=== PATIENT | male | born 1955 | race Caucasian/White ===

== ENCOUNTER 2019-05-07 19:05 | Inpatient (IN) ==
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
[2019-05-07 20:08] LABS: Urine Bilirubin Negative (NEGATIVE); Urine Blood 25 /ul (NEGATIVE); Urine Ketone Negative (NEGATIVE); Urine Nitrite Negative (NEGATIVE); Urine Protein Negative (NEGATIVE); Urine Specific Gravity 1.015 SP.GR. (1.005-1.030); Urine Urobilinogen Normal (NORMAL)
[2019-05-07 20:19] LABS: Urine Appearance Clear (CLEAR); Urine Bacteria None Seen; Urine Color Yellow; Urine RBC TRACE /hpf (0-5); Urine WBC None Seen /hpf (0-5)
[2019-05-07 20:33] LABS: Albumin * 1.8 gm/dl (3.4-5.0); Anion Gap 14.7 mmol/L (6.8-13.8); BUN/Creatinine Ratio 34.9 (9.0-21.6); Bilirubin, Total 0.6 mg/dL (0.0-1.1); Ca. Corrected For Albumin 9.5 mg/dL (8.4-10.2); Calcium * 8.1 mg/dL (7.9-10.9); Carbon Dioxide 21.6 mmol/L (24-32.6); Magnesium 2.1 mg/dL (1.2-2.8); Potassium 5.3 mmol/L (3.4-4.6); Troponin I 0.039 ng/mL (0.00-0.10)
[2019-05-07 20:35] LABS: Mean Cell Volume 99.1 fl (78-100); Mean Corpuscular Hemoglobin 29.1 pg (27-31); Mean Corpuscular Hgb Conc 29.3 g/dl (32-36); Mean Platelet Volume 11.7 fl (8-11.3); Neutrophil # 4.2 K/mm3 (1.3-6.0); Neutrophil % 84.1 % (42-75.0); Red Blood Count 2.34 M/mm3 (4.7-6.0); Red Cell Distribution Width 19.3 % (11.5-14.0)
[2019-05-07 20:42] LABS: Hemoglobin 6.8 gm/dL (13.5-18.0)
[2019-05-07 20:43] LABS: Hematocrit 23.2 % (42.0-52.0)
[2019-05-07 20:44] LABS: Platelet Count 86 K/mm3 (150-450)
[2019-05-07] MEDS ORDERED: DIATRIZOATE MEGLUMINE, SODIUM 30 ML BTL PO ONE (21:12)
[2019-05-08] MEDS ORDERED: ACETAMINOPHEN 325 MG TABLET PO ONE (00:20)
[2019-05-08] MEDS ORDERED: diphenhydrAMINE HCL 50 MG/ML VIAL IV ONE (00:20)
[2019-05-08] MEDS ORDERED: FUROSEMIDE 10 MG/ML VIAL IV ONE (00:22)
[2019-05-08] MEDS ORDERED: SENNOSIDES/DOCUSATE SODIUM 1 TAB TABLET PO PRN (09:52)
[2019-05-08 09:58] LABS: Hematocrit 30.9 % (42.0-52.0); Hemoglobin 9.5 gm/dL (13.5-18.0)
[2019-05-08] MEDS ORDERED: FUROSEMIDE 10 MG/ML VIAL IV SCH (10:00)
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
[2019-05-08] MEDS: CITALOPRAM HYDROBROMIDE 20 MG TABLET PO SCH (11:13)
[2019-05-08] MEDS: INSUL NPH HU REC/INS RG HU REC 100 UNITS/ML VIAL SC SCH (11:14)
[2019-05-08] MEDS ORDERED: INSUL NPH HU REC/INS RG HU REC 100 UNITS/ML VIAL SC SCH (17:00)
[2019-05-08] MEDS: FUROSEMIDE 10 MG/ML VIAL IV SCH (17:00)
[2019-05-08] MEDS: TAMSULOSIN HCL 0.4 MG CAP.SR.24H PO SCH (18:00)
[2019-05-08] MEDS ORDERED: ONDANSETRON 4 MG TAB.RAPDIS PO PRN (18:30)
[2019-05-08] MEDS ORDERED: ONDANSETRON 8 MG TAB.RAPDIS PO PRN (18:30)
[2019-05-08] MEDS: AMITRIPTYLINE HCL 50 MG TABLET PO SCH (20:31)
[2019-05-08] MEDS: FAMOTIDINE 20 MG TABLET PO SCH (20:32)
[2019-05-08] MEDS: ROSUVASTATIN CALCIUM 20 MG TABLET PO SCH (20:32)
[2019-05-08] MEDS: MORPHINE SULFATE 4 MG/ML SYRG IV PRN (21:01)
[2019-05-09 06:26] LABS: Hematocrit 27.3 % (42.0-52.0); Hemoglobin 8.4 gm/dL (13.5-18.0); Mean Cell Volume 96.1 fl (78-100); Mean Corpuscular Hemoglobin 29.6 pg (27-31); Mean Corpuscular Hgb Conc 30.8 g/dl (32-36); Mean Platelet Volume 10.6 fl (8-11.3); Neutrophil # 3.3 K/mm3 (1.3-6.0); Neutrophil % 78.6 % (42-75.0); Platelet Count 85 K/mm3 (150-450); Red Blood Count 2.84 M/mm3 (4.7-6.0); Red Cell Distribution Width 18.2 % (11.5-14.0); White Blood Count 4.1 K/mm3 (4.0-10.5)
[2019-05-09 06:35] LABS: Albumin * 1.6 gm/dl (3.4-5.0); Anion Gap 11.8 mmol/L (6.8-13.8); Bilirubin, Total 0.7 mg/dL (0.0-1.1); Ca. Corrected For Albumin 9.3 mg/dL (8.4-10.2); Calcium * 7.7 mg/dL (7.9-10.9); Carbon Dioxide 26.7 mmol/L (24-32.6); Potassium 4.5 mmol/L (3.4-4.6); Total Protein 4.5 gm/dL (6.2-8.2)
[2019-05-09] MEDS: LEVOTHYROXINE SODIUM 150 MCG TABLET PO SCH (07:31)
[2019-05-09] MEDS: INSUL NPH HU REC/INS RG HU REC 100 UNITS/ML VIAL SC SCH (08:07)
[2019-05-09] MEDS: ASPIRIN 81 MG TABLET.DR PO SCH (09:41)
[2019-05-09] MEDS: predniSONE 20 MG TABLET PO SCH (09:42)
[2019-05-09] MEDS: CITALOPRAM HYDROBROMIDE 20 MG TABLET PO SCH (09:42)
[2019-05-09] MEDS: FUROSEMIDE 10 MG/ML VIAL IV SCH (10:09)
[2019-05-09] MEDS: FUROSEMIDE 40 MG TABLET PO SCH ×3 (10:17→17:25)
--- NOTE | 2019-05-09 10:23 | PN ---
Subjective - Date and Time Seen Date: 05/09/19 Time: 09:16 Subjective Narrative: Overall he feels better today but continues to have right lower quadrant pain. He has not had any more bloody bowel movements. He did move his bowels today. He was able to pivot transfer with occupational therapy this morning. Objective - Review of Systems Generalized/Overall Review: Denies: Fever Respiratory: Denies: Shortness of Breath Cardiac: Reports: Edema. Denies: Chest Pain Abdominal: Reports: Abdominal Pain - Right lower abdomen Neurological: Reports: Tremors - Resting tremors of bilateral hands Misc: All systems neg except as marked - Vitals Vitals: Last Vital Signs Temp 36.7 C 05/09/19 09:49 Pulse 90 05/09/19 09:49 Resp 20 05/09/19 09:49 BP 147/73 05/09/19 09:49 Pulse Ox 100 05/09/19 09:49 - Abnormal Lab Findings Abnormal Lab Findings: Abnormal Lab Results 05/09/19 05/09/19 Range/Units 06:14 06:14 RBC 2.84 L (4.7-6.0) M/mm3 Hgb 8.4 L (13.5-18.0) gm/dL Hct 27.3 L (42.0-52.0) % MCHC 30.8 L (32-36) g/dl RDW 18.2 H (11.5-14.0) % Plt Count 85 L (150-450) K/mm3 Immature Gran % (Auto) 1.40 H (0.001-0.429) % Immature Gran # (Auto) 0.06 H (0.000-0.0310) K/mm3 Neutrophils % 78.6 H (42-75.0) % Lymphocytes % 12.1 L (20-51) % Lymphocytes # 0.50 L (1.5-3.5) k/mm3 Chloride 108 H (97-106) mmol/L BUN 71 H (6-23) mg/dL Creatinine 1.92 H (0.4-1.4) mg/dL Est GFR (Non-Af Amer) 38 L (60-130) mL/min BUN/Creatinine Ratio 37.0 H (9.0-21.6) Calcium 7.7 L (7.9-10.9) mg/dL Alkaline Phosphatase 174 H (50-170) U/L Total Protein 4.5 L (6.2-8.2) gm/dL Albumin 1.6 L (3.4-5.0) gm/dl - Exam Constitutional: Present: Alert, Cooperative, Well developed, Well nourished, No distress, Morbidly obese ENT Exam: Present: hearing grossly normal Neck: Present: non-tender, supple. Absent: lymphadenopathy (R), lymphadenopathy (L) Respiratory: Present: lungs clear, no accessory muscle use, No wheezing. Absent: crackles, rhonchi Cardiovascular/Chest: Present: normal peripheral pulses, regular rate, rhythm, no murmur, edema - 3+ pitting bilateral lower extremities up to the low back and mid abdomen Abdomen: Present: Normal bowel sounds, soft, nontender /Rectal: Present: Other - Dodson in place Extremity: Present: lower extremity edema - 3+ pitting bilateral lower extremities up to the low back and mid abdomen Skin Exam: Present: normal color, other - Weeping of left lower extremity Neurologic: Present: alert, normal mood/affect Appearance: Present: appropriate appearance, appropriate insight Eye contact: Present: cooperative Thoughts: Present: normal mood /affect Cauti Physician Documentation - Urinary Catheter Management [place] Date of Insertion: 05/07/19 Time of Insertion: 19:54 Assessment/Plan Plan Narrative: 63-year-old male with a past medical history of coronary artery disease, constipation, depression, diabetes, gout, hepatitis C, hyperkalemia, hyperlipidemia, secondary hyperparathyroidism, hypertension, hypothyroidism, neurogenic bladder, osteoarthritis, sciatica, stage IV CKD presents with complaints of lower abdominal pain, bloody stool, worsening lower extremity edema and weakness for the past 4 days. He presented to the emergency department and was found to have hemoglobin of 6.8, hematocrit of 23.2, lactic acid of 2.3, BUN of 74, baseline is around 35-45, creatinine of 2.12 with baseline around 1.97, GFR of 34, baseline GFR around 37. Abdominal x-ray showed dilated loops of air-filled small bowel in the right abdomen, air and stool throughout the remainder of the colon to the level of the rectum which could rep resent ileus versus an early/partial. Chest x-ray was negative for any acute small bowel obstruction cardiopulmonary process. CT abdomen pelvis showed cirrhosis, ascites, splenomegaly, anasarca, and mild to moderate retained stool. In the ER he was found to have urinary retention and 1600 cc of urine were drained via Dodson. He currently has a Dodson and had an output of 1300 cc overnight. He was admitted for a GI bleed and fluid overload secondary to anasarca, he was given 2 units of blood with 1 dose of Lasix 40 mg IV. According to our records the patient has had about a 23 kg weight gain in the past 1 month. He has lost about 5 kg fluid in the past 24 hours. He has been diuresing well. He is tolerating it well. His renal function has improved with diuresis so I will continue with IV Lasix. I will increase his dose of Lasix from 40 mg IV twice a day to Lasix 40 mg IV 3 times a day to help offload this high fluid burden. He had a episode of hypoglycemia overnight with blood sugar 40. The sugars resolved with snacks. Hypoglycemia is likely secondary to him being on a strict diabetic diet which he likely does not follow at home. I will therefore hold all his insulin today to assess how he does. Plan #1 attempt to aggressively diurese him as much as his kidneys can tolerate. I will start with Lasix 40 mg IV twice daily. Repeat CBC and CMP in the morning. #2 continue with Dodson, strict I's and O's and daily weights. #3 Continue bowel regimen with senna and Colace as needed #4 resume home medications for comorbidities #5 he is status post 2 units of blood, CBC has dropped slightly but is stable #6 patient has been transitioned to inpatient status. He will likely need rehab on discharge per physical therapy recommendations. #7 I will hold anticoagulation due to the recent GI bleed #8 his blood sugar has been dropping so I will stop insulin for now. If his sugars start rising I will restart insulin at a much lower dose. - Problems/Diagnosis (1) Edema due to hypoalbuminemia Problem: Acute (2) Decompensation of cirrhosis of liver Problem: Acute (3) GI bleed Problem: Resolved Qualifiers: GI bleed type/associated pathology: melena Qualified Code(s): K92.1 - Melena (4) Anemia Problem: Acute Qualifiers: Anemia type: other cause Other causes of anemia: acute posthemorrhagic Qualified Code(s): D62 - Acute posthemorrhagic anemia (5) Fluid overload Problem: Acute Qualifiers: Hypervolemia type: other Qualified Code(s): E87.79 - Other fluid overload (6) Anasarca Problem: Acute (7) Urinary retention Problem: Acute (8) Chronic renal failure, stage 3 (moderate) Problem: Chronic (9) Insulin dependent type 2 diabetes mellitus Problem: Chronic (10) Cirrhosis of liver with ascites Problem: Acute Qualifiers: Hepatic cirrhosis type: unspecified hepatic cirrhosis Qualified Code(s): K74.60 - Unspecified cirrhosis of liver; R18.8 - Other ascites (11) Benign essential hypertension Problem: Chronic (12) Acquired hypothyroidism Problem: Chronic (13) Morbid obesity with BMI of 40.0-44.9, adult Problem: Acute
[2019-05-09] MEDS: TAMSULOSIN HCL 0.4 MG CAP.SR.24H PO SCH (17:25)
[2019-05-09] MEDS ORDERED: INSUL NPH HU REC/INS RG HU REC 100 UNITS/ML VIAL SC ONE (17:43)
[2019-05-09] MEDS: ROSUVASTATIN CALCIUM 20 MG TABLET PO SCH (21:05)
[2019-05-09] MEDS: AMITRIPTYLINE HCL 50 MG TABLET PO SCH (21:05)
[2019-05-09] MEDS: FAMOTIDINE 20 MG TABLET PO SCH (21:05)
[2019-05-09] MEDS ORDERED: INSULIN LISPRO 100 UNITS/ML VIAL SC ONE (21:18)
[2019-05-10 06:36] LABS: Hematocrit 28.3 % (42.0-52.0); Hemoglobin 8.8 gm/dL (13.5-18.0); Mean Cell Volume 95.6 fl (78-100); Mean Corpuscular Hemoglobin 29.7 pg (27-31); Mean Corpuscular Hgb Conc 31.1 g/dl (32-36); Mean Platelet Volume 11.6 fl (8-11.3); Neutrophil # 3.8 K/mm3 (1.3-6.0); Neutrophil % 82.3 % (42-75.0); Platelet Count 80 K/mm3 (150-450); Red Blood Count 2.96 M/mm3 (4.7-6.0); Red Cell Distribution Width 17.4 % (11.5-14.0); White Blood Count 4.6 K/mm3 (4.0-10.5)
[2019-05-10 06:43] LABS: Albumin * 1.7 gm/dl (3.4-5.0); Anion Gap 9.8 mmol/L (6.8-13.8); Bilirubin, Total 0.6 mg/dL (0.0-1.1); Ca. Corrected For Albumin 9.6 mg/dL (8.4-10.2); Calcium * 8.1 mg/dL (7.9-10.9); Potassium 4.8 mmol/L (3.4-4.6); Total Protein 4.8 gm/dL (6.2-8.2)
[2019-05-10 06:52] LABS: BUN/Creatinine Ratio 35.5 (9.0-21.6)
[2019-05-10] MEDS: LEVOTHYROXINE SODIUM 150 MCG TABLET PO SCH (07:20)
[2019-05-10] MEDS: predniSONE 20 MG TABLET PO SCH (09:25)
[2019-05-10] MEDS: ASPIRIN 81 MG TABLET.DR PO SCH (09:25)
[2019-05-10] MEDS: FUROSEMIDE 40 MG TABLET PO SCH ×3 (09:25→17:04)
[2019-05-10] MEDS: CITALOPRAM HYDROBROMIDE 20 MG TABLET PO SCH (09:25)
[2019-05-10] MEDS ORDERED: INSUL NPH HU REC/INS RG HU REC 100 UNITS/ML VIAL SC SCH (11:45)
--- NOTE | 2019-05-10 11:49 | PN ---
Subjective - Date and Time Seen Date: 05/10/19 Time: 11:49 Subjective Narrative: Patient resting comfortably in his chair, currently eating. Doing well with therapy. Vital signs are stable is afebrile. Still has some right lower quadrant pain but is starting to feel better. No recent bloody stools. Patient done roughly 12 pounds from admission with diuresis. Kidney function bumped just a little bit low probably stable and doing well. Hemoglobin is stable. Objective - Review of Systems Generalized/Overall Review: Reports: Weakness, Fatigue. Denies: Chills, Fever EENTM: Reports: No Symptoms Reported Cardiac: Reports: Edema. Denies: Chest Pain Abdominal: Reports: Abdominal Pain. Denies: Nausea, Vomiting, Melena Genitourinary Symptoms: Reports: No Symptoms Reported Neurological: Reports: No Symptoms Reported Endocrine: Reports: No Symptoms Reported - Vitals Vitals: Last Vital Signs Temp 36.5 C 05/10/19 11:00 Pulse 89 05/10/19 11:00 Resp 18 05/10/19 11:00 BP 179/89 H 05/10/19 11:00 Pulse Ox 97 05/10/19 11:00 - Abnormal Lab Findings Abnormal Lab Findings: Abnormal Lab Results 05/10/19 05/10/19 Range/Units 06:11 06:11 RBC 2.96 L (4.7-6.0) M/mm3 Hgb 8.8 L (13.5-18.0) gm/dL Hct 28.3 L (42.0-52.0) % MCHC 31.1 L (32-36) g/dl RDW 17.4 H (11.5-14.0) % Plt Count 80 L (150-450) K/mm3 MPV 11.6 H (8-11.3) fl Immature Gran % (Auto) 1.10 H (0.001-0.429) % Immature Gran # (Auto) 0.05 H (0.000-0.0310) K/mm3 Neutrophils % 82.3 H (42-75.0) % Lymphocytes % 9.2 L (20-51) % Lymphocytes # 0.42 L (1.5-3.5) k/mm3 Potassium 4.8 H (3.4-4.6) mmol/L Chloride 108 H (97-106) mmol/L BUN 71 H (6-23) mg/dL Creatinine 2.00 H (0.4-1.4) mg/dL Est GFR (Non-Af Amer) 36 L (60-130) mL/min BUN/Creatinine Ratio 35.5 H (9.0-21.6) Alkaline Phosphatase 179 H (50-170) U/L Total Protein 4.8 L (6.2-8.2) gm/dL Albumin 1.7 L (3.4-5.0) gm/dl - Exam Constitutional: Present: Alert, Oriented x3 Respiratory: Present: lungs clear, decreased breath sounds Cardiovascular/Chest: Present: regular rate, rhythm, no murmur, edema Extremity: Present: swelling Appearance: Present: disheveled, impaired insight Eye contact: Present: cooperative, normal speech Cauti Physician Documentation - Urinary Catheter Management Coude Date of Insertion: 05/07/19 Time of Insertion: 19:54 Assessment/Plan Plan Narrative: 63 year old male here due to abdominal pain, melena, chf exacerbation, and poorly controlled diabetes Patient no longer having bloody stools, hemoglobin stable at 8.8 today. Will continue to monitor. Repeat cbc in the am. Minimal abdominal pain now. CHF-diuresed 12 lbs since admission. Monitor CKD, creatinine bumped slightly overnight. Will give only 40 mg IV lasix today, repeat CMP in the am Diabetes-patient had all insulin stopped the day before due to hypoglycemic episode. Restarted at lower dose, sugars have been stable. Continue 40 unit of 70/30 BID VSS, he is afebrile. Hydralazine prn for systoliuc pressures > 170 added today. He is more comfortable today then he has been. Continue consistent carb diet. Monitor BS ACHS. Nurse will call with any questions or concerns - Problems/Diagnosis (1) CHF (congestive heart failure) Problem: Acute Qualifiers: Heart failure type: unspecified Heart failure chronicity: acute on chronic Qualified Code(s): I50.9 - Heart failure, unspecified (2) Decompensation of cirrhosis of liver Problem: Acute (3) Fluid overload Problem: Acute Qualifiers: Hypervolemia type: other Qualified Code(s): E87.79 - Other fluid overload (4) Anemia Problem: Acute Qualifiers: Anemia type: other cause Other causes of anemia: acute posthemorrhagic Qualified Code(s): D62 - Acute posthemorrhagic anemia (5) Anasarca Problem: Resolved (6) Morbid obesity with BMI of 40.0-44.9, adult Problem: Acute (7) Insulin dependent type 2 diabetes mellitus Problem: Chronic (8) Benign essential hypertension Problem: Chronic
[2019-05-10] MEDS ORDERED: HUM INSULIN NPH/REG INSULIN HM 100 UNIT/ML VIAL SC SCH (11:50)
[2019-05-10] MEDS: INSUL NPH HU REC/INS RG HU REC 100 UNITS/ML VIAL SC SCH ×2 (11:52→21:01)
[2019-05-10] MEDS: TAMSULOSIN HCL 0.4 MG CAP.SR.24H PO SCH (17:04)
[2019-05-10] MEDS: ROSUVASTATIN CALCIUM 20 MG TABLET PO SCH (20:58)
[2019-05-10] MEDS: FAMOTIDINE 20 MG TABLET PO SCH (20:58)
[2019-05-10] MEDS: AMITRIPTYLINE HCL 50 MG TABLET PO SCH (20:58)
[2019-05-10] MEDS: MORPHINE SULFATE 4 MG/ML SYRG IV PRN (21:43)
[2019-05-10] MEDS ORDERED: hydrALAZINE HCL 20 MG/ML VIAL IV PRN (22:45)
[2019-05-11] MEDS: LEVOTHYROXINE SODIUM 150 MCG TABLET PO SCH (07:27)
[2019-05-11] MEDS: predniSONE 20 MG TABLET PO SCH (08:25)
[2019-05-11] MEDS: FUROSEMIDE 40 MG TABLET PO SCH ×3 (08:25→17:14)
[2019-05-11] MEDS: CITALOPRAM HYDROBROMIDE 20 MG TABLET PO SCH (08:26)
[2019-05-11] MEDS: ASPIRIN 81 MG TABLET.DR PO SCH (08:26)
[2019-05-11] MEDS: INSUL NPH HU REC/INS RG HU REC 100 UNITS/ML VIAL SC SCH ×2 (08:28→22:17)
[2019-05-11 12:58] LABS: Anion Gap 13.2 mmol/L (6.8-13.8); Calcium * 8.6 mg/dL (7.9-10.9); Carbon Dioxide 25.4 mmol/L (24-32.6); Estimated Creat Clear 39.2; Potassium 4.6 mmol/L (3.4-4.6)
[2019-05-11] MEDS: TAMSULOSIN HCL 0.4 MG CAP.SR.24H PO SCH (17:14)
--- NOTE | 2019-05-11 19:48 | PN ---
Subjective - Date and Time Seen Date: 05/11/19 Time: 12:32 Subjective Narrative: Patient sitting comfortably in his chair. Still has significant edema but no other concerns at this time. No longer having abdominal pain. No bloody stools. Vital signs been stable afebrile. Kidney function is slightly worse today than it was yesterday. Patient still working with PT. Objective - Review of Systems Generalized/Overall Review: Reports: Malaise, Fatigue EENTM: Reports: No Symptoms Reported Respiratory: Reports: Shortness of Breath. Denies: Cough Cardiac: Reports: Edema. Denies: Chest Pain Abdominal: Denies: Abdominal Pain, Melena Genitourinary Symptoms: Denies: Burning, Urgency, Frequency - Vitals Vitals: Last Vital Signs Temp 37.0 C 05/11/19 17:36 Pulse 93 05/11/19 17:36 Resp 22 H 05/11/19 17:36 BP 159/78 H 05/11/19 17:36 Pulse Ox 100 05/11/19 17:36 - Abnormal Lab Findings Abnormal Lab Findings: Abnormal Lab Results 05/11/19 Range/Units 12:31 BUN 71 H (6-23) mg/dL Creatinine 2.09 H (0.4-1.4) mg/dL Est GFR (Non-Af Amer) 34 L (60-130) mL/min BUN/Creatinine Ratio 34.0 H (9.0-21.6) Random Glucose 176 H D (70-110) mg/dL - Exam Constitutional: Present: Alert, Oriented x3, Morbidly obese, Looks Older than stated age Respiratory: Present: lungs clear, normal breath sounds Cardiovascular/Chest: Present: regular rate, rhythm, edema - 3+ dimension Abdomen: Present: soft, nontender Skin Exam: Present: cool/dry Appearance: Present: disheveled, impaired insight Eye contact: Present: cooperative, good eye contact Cauti Physician Documentation - Urinary Catheter Management Coude Date of Insertion: 05/07/19 Time of Insertion: 19:54 Assessment/Plan Plan Narrative: 63 year old male here due to abdominal pain, melena, chf exacerbation, and poorly controlled diabetes. History of cirrhosis and hypoalbuminemia. Patient no longer having bloody stools, hemoglobin stable at 8.8 today. Will continue to monitor. No abdominal pain today CHF-diuresed 18 lbs since admission. Monitor CKD, creatinine bumped slightly overnight. Will give only 40 mg IV Lasix daily, repeat BMP in the am Diabetes-blood sugars much better controlled continue 40 unit of 70/30 BID VSS, he is afebrile. Hydralazine prn for systoliuc pressures > 170 added today. Overall continues to improve but still very weak continue consistent carb diet. Monitor BS ACHS. Nurse will call with any questions or concerns. Due to patient's weakness concern for or patient will be discharged but recommended SNF - Problems/Diagnosis (1) CHF (congestive heart failure) Problem: Acute Qualifiers: Heart failure type: unspecified Heart failure chronicity: acute on chronic Qualified Code(s): I50.9 - Heart failure, unspecified (2) Decompensation of cirrhosis of liver Problem: Acute (3) Fluid overload Problem: Acute Qualifiers: Hypervolemia type: other Qualified Code(s): E87.79 - Other fluid overload (4) Anemia Problem: Acute Qualifiers: Anemia type: other cause Other causes of anemia: acute posthemorrhagic Qualified Code(s): D62 - Acute posthemorrhagic anemia (5) Anasarca Problem: Resolved (6) Morbid obesity with BMI of 40.0-44.9, adult Problem: Acute (7) Insulin dependent type 2 diabetes mellitus Problem: Chronic (8) Benign essential hypertension Problem: Chronic
[2019-05-11] MEDS ORDERED: FUROSEMIDE 40 MG TABLET PO SCH (21:00)
[2019-05-11] MEDS: AMITRIPTYLINE HCL 50 MG TABLET PO SCH (22:13)
[2019-05-11] MEDS: ROSUVASTATIN CALCIUM 20 MG TABLET PO SCH (22:14)
[2019-05-11] MEDS: FAMOTIDINE 20 MG TABLET PO SCH (22:14)
[2019-05-12 06:50] LABS: Hematocrit 26.7 % (42.0-52.0); Hemoglobin 8.3 gm/dL (13.5-18.0); Mean Cell Volume 94.7 fl (78-100); Mean Corpuscular Hemoglobin 29.4 pg (27-31); Mean Corpuscular Hgb Conc 31.1 g/dl (32-36); Mean Platelet Volume 11.2 fl (8-11.3); Neutrophil # 2.9 K/mm3 (1.3-6.0); Neutrophil % 82.6 % (42-75.0); Platelet Count 87 K/mm3 (150-450); Red Blood Count 2.82 M/mm3 (4.7-6.0); Red Cell Distribution Width 17.2 % (11.5-14.0); White Blood Count 3.5 K/mm3 (4.0-10.5)
[2019-05-12 07:02] LABS: Anion Gap 10.7 mmol/L (6.8-13.8); Calcium * 8.5 mg/dL (7.9-10.9); Carbon Dioxide 28.4 mmol/L (24-32.6); Estimated Creat Clear 39.8; Potassium 4.1 mmol/L (3.4-4.6)
[2019-05-12] MEDS ORDERED: MORPHINE SULFATE 2 MG/ML DISP.SYRIN IV PRN (07:15)
[2019-05-12] MEDS: LEVOTHYROXINE SODIUM 150 MCG TABLET PO SCH (07:50)
[2019-05-12] MEDS ORDERED: FUROSEMIDE 40 MG TABLET PO ONE (09:00)
[2019-05-12] MEDS: ASPIRIN 81 MG TABLET.DR PO SCH (09:42)
[2019-05-12] MEDS: predniSONE 20 MG TABLET PO SCH (09:42)
[2019-05-12] MEDS: CITALOPRAM HYDROBROMIDE 20 MG TABLET PO SCH (09:42)
[2019-05-12] MEDS: INSUL NPH HU REC/INS RG HU REC 100 UNITS/ML VIAL SC SCH (09:42)
--- NOTE | 2019-05-12 11:39 | DS ---
(1) GI bleed Diagnosis(s): melena plus bright red blood. Problem: Resolved Qualifiers: GI bleed type/associated pathology: melena (2) Decompensation of cirrhosis of liver Diagnosis(s): improved Problem: Acute (3) Steroid-induced myopathy Problem: Acute (4) Chronic renal failure, stage 3 (moderate) Problem: Chronic (5) Insulin dependent type 2 diabetes mellitus Problem: Chronic Date of Discharge:: 05/12/19 Hospital Course: 63-year-old male with a past medical history of coronary artery disease, constipation, depression, diabetes, gout, hepatitis C, hyperkalemia, hyperlipidemia, secondary hyperparathyroidism, hypertension, hypothyroidism, neurogenic bladder, osteoarthritis, sciatica, cirrhosis with ascites, splenomegaly and anasarca, 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 His weakness became profound following institution of steroids at the [facility]. Previously he was able to use a walker from wheelchair to bathroom, but he deteriorated until he could no longer get out or a bed or chair. He reporte having 3-4 bloody bowel movements that were red/dark blood mixed with stool and blood. He presented to the emergency department and was found to have hemoglobin of 6.8, hematocrit of 23.2, lactic acid of 2.3, BUN of 74, baseline is around 35-45, creatinine of 2.12 with baseline around 1.97, GFR of 34, baseline GFR around 37. Abdominal x-ray showed dilated loops of air-filled small bowel in the right abdomen, air and stool throughout the remainder of the colon to the level of the rectum which could represent ileus versus an early/partial. Chest x-ray was negative for any acute small bowel obstruction cardiopulmonary process. CT abdomen pelvis showed cirrhosis, ascites, splenomegaly, anasarca, and mild to moderate retained stool. In the ER he was found to have urinary retention and 1600 cc of urine was drained via Dodson. He currently has a Dodson and had an output of 1300 cc overnight. He was admitted for a GI bleed and fluid overload including ascites secondary to cirrhosis. He was given 2 units of blood with 1 dose of Lasix 40 mg which improved his condition significantly. Still has significant edema and profound weakness, but no other concerns at this time. No longer having abdominal pain. No bloody sto ols. Vital signs been stable. Afebrile. Kidney function and hgb are stable and there is no observable rectal bleeding. Patient still working with PT, but remains very weak and still requires daily physical therapy. Procedures Performed: none Health Concerns: watch chronic anemia and kidney function. watch for electrolyte imbalance and dehydration. watch for additional rectal bleeding. use PT to restore function back to baseline. Results and Findings: Pending Mircobiology Results 05/07/19 20:32 Blood Blood Culture - Preliminary NO GROWTH AFTER 48 HOURS 05/07/19 20:02 Blood Blood Culture - Preliminary NO GROWTH AFTER 48 HOURS Lab Pending Results 05/07/19 20:02: Sodium 140, Plasma Sodium 141, Potassium 5.3 H, Chloride 109 H, Carbon Dioxide 21.6 L, Anion Gap 14.7 H, BUN 74 H, Creatinine 2.12 H, Est GFR (Non-Af Amer) 34 L, BUN/Creatinine Ratio 34.9 H, Random Glucose 166 H, Calcium 8.1, Calcium Adj for Albumin 9.5, Magnesium 2.1, Total Bilirubin 0.6, AST 39, ALT 55, Alkaline Phosphatase 187 H, Creatine Kinase 48, Troponin I 0.039, B- Natriuretic Peptide 736 H, Total Protein 5.0 L, Albumin 1.8 L, Lipase 308 05/07/19 20:02: Lactic Acid, Venous 2.3 H* 05/07/19 20:02: Urine Color Yellow, Urine Appearance Clear, Urine pH 5.0, Ur Specific [place] 1.015, Urine Protein Negative, Urine Glucose (UA) Negative, Urine Ketones Negative, Urine Blood 25 H, Urine Nitrate Negative, Urine Bilirubin Negative, Urine Urobilinogen Normal, Ur Leukocyte Esterase Negative, Urine RBC Trace, Urine WBC None seen, Ur Epithelial Cells None seen, Urine Bacteria None seen, Urine Culture Comments No culture indicated 05/07/19 20:30: Blood Type O Positive, Antibody Screen Negative, Crossmatch See Detail 05/07/19 20:32: WBC 5.0, RBC 2.34 L, Hgb 6.8 L* D, Hct 23.2 L* D, MCV 99.1, MCH 29.1, MCHC 29.3 L, RDW 19.3 H, Plt Count 86 L, MPV 11.7 H, Immature Gran % (Auto) 1.20 H, Immature Gran # (Auto) 0.06 H, Neutrophils % 84.1 H, Lymphocytes % 8.7 L, Monocytes % 5.4, Eosinophils % 0.4, Basophils % 0.2, Nucleated RBC % 0.0, Neutrophils # 4.2, Lymphocytes # 0.43 L, Monocytes # 0.3, Eosinophils # 0.0, Absolute Basophils 0.0 05/07/19 23:20: Lactic Acid, Venous 1.2 05/08/19 09:52: Hgb 9.5 L, Hct 30.9 L 05/09/19 06:14: WBC 4.1, RBC 2.84 L, Hgb 8.4 L, Hct 27.3 L, MCV 96.1, MCH 29.6, MCHC 30.8 L, RDW 18.2 H, Plt Count 85 L, MPV 10.6, Immature Gran % (Auto) 1.40 H, Immature Gran # (Auto) 0.06 H, Neutrophils % 78.6 H, Lymphocytes % 12.1 L, Monocytes % 7.2, Eosinophils % 0.5, Basophils % 0.2, Nucleated RBC % 0.0, Neutrophils # 3.3, Lymphocytes # 0.50 L, Monocytes # 0.3, Eosinophils # 0.0, Absolute Basophils 0.0 05/09/19 06:14: Sodium 142, Plasma Sodium 142, Potassium 4.5, Chloride 108 H, Carbon Dioxide 26.7, Anion Gap 11.8, BUN 71 H, Creatinine 1.92 H, Est GFR (Non- Af Amer) 38 L, BUN/Creatinine Ratio 37.0 H, Random Glucose 101 D, Calcium 7.7 L, Calcium Adj for Albumin 9.3, Total Bilirubin 0.7, AST 30, ALT 48, Alkaline Phosphatase 174 H, Total Protein 4.5 L, Albumin 1.6 L 05/10/19 06:11: WBC 4.6, RBC 2.96 L, Hgb 8.8 L, Hct 28.3 L, MCV 95.6, MCH 29.7, MCHC 31.1 L, RDW 17.4 H, Plt Count 80 L, MPV 11.6 H, Immature Gran % (Auto) 1.10 H, Immature Gran # (Auto) 0.05 H, Neutrophils % 82.3 H, Lymphocytes % 9.2 L, Monocytes % 7.4, Eosinophils % 0.0, Basophils % 0.0, Nucleated RBC % 0.0, Neutrophils # 3.8, Lymphocytes # 0.42 L, Monocytes # 0.3, Eosinophils # 0.0, Absolute Basophils 0.0 05/10/19 06:11: Sodium 141, Plasma Sodium 141, Potassium 4.8 H, Chloride 108 H, Carbon Dioxide 28.0, Anion Gap 9.8, BUN 71 H, Creatinine 2.00 H, Est GFR (Non-Af Amer) 36 L, BUN/Creatinine Ratio 35.5 H, Random Glucose 102, Calcium 8.1, Calcium Adj for Albumin 9.6, Total Bilirubin 0.6, AST 23, ALT 47, Alkaline Phosphatase 179 H, Total Protein 4.8 L, Albumin 1.7 L 05/11/19 12:31: Sodium 140, Plasma Sodium 141, Potassium 4.6, Chloride 106, Carbon Dioxide 25.4, Anion Gap 13.2, BUN 71 H, Creatinine 2.09 H, Est GFR (Non- Af Amer) 34 L, BUN/Creatinine Ratio 34.0 H, Random Glucose 176 H D, Calcium 8.6 05/12/19 05:40: WBC 3.5 L D, RBC 2.82 L, Hgb 8.3 L, Hct 26.7 L, MCV 94.7, MCH 29.4, MCHC 31.1 L, RDW 17.2 H, Plt Count 87 L, MPV 11.2, Immature Gran % (Auto) 1.20 H, Immature Gran # (Auto) 0.04 H, Neutrophils % 82.6 H, Lymphocytes % 8.4 L, Monocytes % 7.8, Eosinophils % 0.0, Basophils % 0.0, Nucleated RBC % 0.0, Neutrophils # 2.9, Lymphocytes # 0.29 L, Monocytes # 0.3, Eosinophils # 0.0, Absolute Basophils 0.0 05/12/19 05:40: Sodium 144 H, Plasma Sodium 144 H, Potassium 4.1, Chloride 109 H, Carbon Dioxide 28.4, Anion Gap 10.7, BUN 72 H, Creatinine 2.06 H, Est GFR (Non-Af Amer) 35 L, BUN/Creatinine Ratio 35.0 H, Random Glucose 124 H, Calcium 8.5 Discharge Location: [facility] Disposition: SNF Condition: Fair Level of Care: SNF Discharge Activity: Other - wheelchair, bed, chair, up with walker and assistance as tolerated (outcome goal). Discharge Diet: Consistent carbs, Low salt - 2 gm sodium diet, Renal Failure [facility]ci Therapy: Physical Therapy, Occupation Therapy Referrals: Donnie Sheikh MD [Primary Care Provider] - Additional Patient Instructions (free text): To [facility], for PT and OT to evaluate and treat. Daily weights. CBC and BMP 1 week. Fingerstick blood sugars achs Please call the [facility] doctor who prescribed prednisone and find out if they want him to continue the same prednisone dose, and if so, for how long. Complete Home Medications List: Complete Home Medication List: glucagon (human recombinant) 1 mg injection kit 1 mg SUB-Q PRN PRN 08/07/17 cholecalciferol (vitamin D3) 4,000 unit capsule 4,000 unit PO DAILY #30 cap 09/13/17 citalopram 20 mg tablet 20 mg PO DAILY #30 tab 07/08/18 tamsulosin 0.4 mg capsule 0.4 mg PO DAILY #30 cap 07/08/18 cyanocobalamin (vitamin B-12) 1,000 mcg capsule 1,000 mcg PO DAILY 07/09/18 levothyroxine 150 mcg tablet 150 mcg PO DAILY #30 tab 07/22/18 allopurinol 300 mg tablet 300 mg PO DAILY #90 tab 11/19/18 naloxone 4 mg/actuation nasal spray 4 mg NICOLASA Q2M PRN #2 ea 12/27/18 famotidine 20 mg tablet 20 mg PO HS #90 tab 12/31/18 econazole 1 % topical cream 1 applic TP BID 03/17/19 furosemide 20 mg tablet 40 mg PO DAILY 03/17/19 insulin human U-100 NPH-regulr 70-30 mix 100 unit/mL subcutaneous susp See Rx Instructions SUBCUT BID #40 ml 03/17/19 polyethylene glycol 3350 17 gram/dose oral powder 17 g PO DAILY 03/17/19 Amitriptyline HCl 100 mg PO HS 05/07/19 Atorvastatin Calcium 40 mg PO HS 05/07/19 predniSONE [Prednisone] 60 mg PO DAILY 05/07/19 Insul NPH Hu Rec/Ins Rg Hu Rec [Novolin 70/30] 40 units SC BID vial 04/06/20 Sennosides/Docusate Sodium [Senokot-S] 1 tab PO BID PRN tab 05/12/19 Spironolactone 100 mg PO QAM #30 tablet 05/12/19
[2019-05-12 16:55] VITALS: BP 163/80
== END 2019-05-12 16:28 | disposition home health service (06) | DRG 378 ==
LOC: ER 19:05 → MS 19:05
PROVIDERS: ADMIT Internal Medicine; ATTEND Allergy & Immunology
DX: E87.79 Other fluid overload; E66.01 Morbid (severe) obesity due to excess calories; D62 Acute posthemorrhagic anemia; R33.9 Retention of urine, unspecified; Z79.4 Long term (current) use of insulin; N18.3 Chronic kidney disease, stage 3 (moderate); E11.22 Type 2 diabetes mellitus with diabetic chronic kidney disease; K74.60 Unspecified cirrhosis of liver; G72.0 Drug-induced myopathy; R18.8 Other ascites; E88.09 Other disorders of plasma-protein metabolism, not elsewhere classified; I50.9 Heart failure, unspecified; I13.0 Hypertensive heart and chronic kidney disease with heart failure and stage 1 through stage 4 chronic kidney disease, or unspecified chronic kidney disease; T38.0X5A Adverse effect of glucocorticoids and synthetic analogues, initial encounter; Z68.41 Body mass index [BMI] 40.0-44.9, adult; K92.2 Gastrointestinal hemorrhage, unspecified
CPT/HCPCS: 36415; 36430; 71010; 71045; 74000; 74018; 74176; 80048; 80053; 81001; 82550; 83519; 83605; 83690; 83735; 83880; 84484; 85014; 85018; 85025; 86850; 87040; 93005; 96372; 96374; 96375; 96376; 97110; 97116; 97162; 97166; 97530; 99285; G0378; P9016; Q9963